=== PATIENT | male | born 1935 | race Caucasian/White ===

== ENCOUNTER 2017-06-24 13:52 | Emergency (ER) | payer MEDICARE ==
[~2017-06-24 13:52] MED LIST: ASPI1TAB69 PO; CENTTAB PO; CYAN100017 PO; D200CAP2; DONE5TAB7 PO; ESSE250T; FISH120014; GLIP5TAB8 PO; MEMA1TAB2 PO; METF1000 PO; SILD20TA11 PO; SIMV20TA PO; VALS1TAB64 PO
[2017-06-24 14:06] VITALS: BP 149/70; PULSE 88; RESP 18; TEMP 98.9; O2SAT 99
[2017-06-24 15:04] LABS: AUTOMATED NEUTROPHIL # 7.9 TH/MM3 (1.8-7.7); BASOPHIL % 0.4 % (0.0-2.0); EOSINOPHIL % 0.2 % (0.0-4.0); HEMATOCRIT 42.4 % (39.0-51.0); HEMOGLOBIN 14.2 GM/DL (13.0-17.0); LYMPH % 7.1 % (9.0-44.0); LYMPHOCYTE # 0.7 TH/MM3 (1.0-4.8); MEAN CELL VOLUME 92.5 FL (80.0-100.0); MEAN CORPUSCULAR HGB CONC 33.5 % (32.0-36.0); MEAN PLATELET VOLUME 9.6 FL (7.0-11.0); MONOCYTE # 0.7 TH/MM3 (0-0.9); NEUT % 84.3 % (16.0-70.0); PLATELET COUNT 204 TH/MM3 (150-450); RED BLOOD COUNT 4.58 MIL/MM3 (4.50-5.90); WHITE BLOOD COUNT 9.4 TH/MM3 (4.0-11.0)
[2017-06-24 15:11] LABS: ALBUMIN 3.4 GM/DL (3.4-5.0); ALT (GPT) 21 U/L (12-78); AST (GOT) 23 U/L (15-37); BICARBONATE 21.2 MEQ/L (21.0-32.0); BLOOD UREA NITROGEN 19 MG/DL (7-18); CALCIUM 8.9 MG/DL (8.5-10.1); CHLORIDE 105 MEQ/L (98-107); CREATININE 1.18 MG/DL (0.60-1.30); GLOMERULAR FILTRATION RATE 59 ML/MIN (>89); GLUCOSE,RANDOM 196 MG/DL (74-106); SODIUM (NA) 137 MEQ/L (136-145)
[2017-06-24 15:13] LABS: ALKALINE PHOSPHATASE 57 U/L (45-117); TOTAL BILIRUBIN ADULT 0.4 MG/DL (0.2-1.0); TOTAL PROTEIN 6.6 GM/DL (6.4-8.2)
--- NOTE | 2017-06-24 15:13 | RADRPT ---
EXAM DATE/TIME: 06/24/2017 15:04 [place] COMPARISON: No previous studies available for comparison. INDICATIONS : Syncope MEDICAL HISTORY : None. SURGICAL HISTORY : None. ENCOUNTER: Initial ACUITY: 1 day PAIN SCORE: 0/10 LOCATION: chest FINDINGS: A single view of the chest demonstrates the lungs to be symmetrically aerated without evidence of mas s, infiltrate or effusion. The cardiomediastinal contours are unremarkable. Osseous structures are intact. CONCLUSION: Normal examination. Sandeep Weller MD on June 24, 2017 at 15:11 Board Certified Radiologist. This report was verified electronically.
[2017-06-24] MEDS ORDERED: SODIUM CHLORID 0.9% 500 ML INJ 500 ML IV ONE (15:15)
--- NOTE | 2017-06-24 15:24 | PD ---
HPI Chief Complaint: Syncope/Near-Syncope Time Seen by Provider: 14:40 Travel History International Travel<30 days: No Contact w/Intl Traveler<30days: No Traveled to known affect area: No History of Present Illness HPI This is an 82-year-old male with a history of diabetes mellitus, dementia, presents here after syncopal episode while at store with his . According to the patient and his son who is at the bedside, he apparently was walking out the door when he became lightheaded and passed out. Paramedics arrived on scene , they found his blood pressure to be 100 systolic. He was given a liter IV fluid and he is blood pressure went up into the 140 systolic. The patient has no complaints at the time of my examination. Patient states she feels fine. His son is at the bedside states that his dad does have dementia and diabetes and has had hypoglycemic episodes in the past. There are no other complaints at the time of my examination. PFSH Past Medical History Arthritis: No Asthma: No Autoimmune Disease: No Heart Rhythm Problems: No Cancer: No Cardiovascular Problems: Yes High Cholesterol: Yes (TAKES MED FOR) Chest Pain: No Congestive Heart Failure: No COPD: No Cerebrovascular Accident: No Diabetes: Yes Patient Takes Glucophage: No Endocrine: Yes (ORAL ANTIGLYCEMICS) GERD: No Genitourinary: No Hiatal Hernia: No Hypertension: Yes (TAKES MEDS FOR) Immune Disorder: No Kidney Stones: No Musculoskeletal: No Neurologic: Yes (SEVERE VERTIGO --ADMITTED WITH TODAY) Psychiatric: No Reproductive: No Respiratory: No Migraines: No Renal Failure: No Seizures: No Sickle Cell Disease: No Sleep Apnea: No Thyroid Disease: No Ulcer: No ?: Not Past Surgical History Abdominal Surgery: Yes (ABDOMINAL ADHESIONS) AICD: No Arteriovenous Shunt: No Cardiac Surgery: No Ear Surgery: No Endocrine Surgery: No Eye Surgery: No Genitourinary Surgery: No Gynecologic Surgery: No Insulin Pump: No Joint Replacement: No Oral Surgery: No Pacemaker: No Thoracic Surgery: No Tonsillectomy: Yes Other Surgery: Yes Social History Alcohol Use: Yes (WEEKLY) Tobacco Use: No Substance Use: No Allergies-Medications (Allergen,Severity, Reaction): Coded Allergies: No Known Allergies (Unverified Adverse Reaction, Unknown, 06/24/17) Reported Meds & Prescriptions Reported Meds & Active Scripts Active Glipizide 5 Mg Tab 5 Mg PO DAILY Take 30 minutes before a meal Valsartan 80 Mg Tab 80 Mg PO DAILY Metformin (Metformin HCl) 1,000 Mg Tab 1,000 Mg PO BIDAC With meals Simvastatin 20 Mg Tab 20 Mg PO DAILY Sildenafil 20 Mg Tab 5 Tab PO ONCE Reported Magnesium 250 Mg Tab Fish Oil ([place]-3 Fatty Acids) 1,200 Mg Cap Centrum Silver (Multiple Vitamins W/ Minerals) 1 Tab 1 Tab PO DAILY D3 (Cholecalciferol) 2,000 Unit Cap B-12 (Cyanocobalamin) 1,000 Mcg Cap 1,000 Mcg PO DAILY Aspirin 81 Mg Tabdr 81 Mg PO DAILY Memantine 10 Mg Tab 10 Mg PO BID Donepezil 5 Mg Tab 5 Mg PO HS Review of Systems Except as stated in HPI: all other systems reviewed are Neg General / Constitutional: No: Fever, Chills Eyes: No: Blurred Vision, Photophobia HENT: No: Headaches, Lightheadedness, Neck Pain Cardiovascular: Positive: Syncope, No: Chest Pain or Discomfort, Palpitations Respiratory: No: Cough, Shortness of Breath Gastrointestinal: No: Nausea, Vomiting, Abdominal Pain Genitourinary: No: Decreased Urinary Output, Incontinence Musculoskeletal: No: Weakness, Pain Neurologic: Positive: Syncope, No: Weakness, Dizziness, Headache, Change in Mentation, Incontinence, Sensory Disturbance Physical Exam Narrative GENERAL: Well-developed well-nourished male in no acute respiratory distress. SKIN: Focused skin assessment warm/dry. HEAD: Atraumatic. Normocephalic. EYES: Pupils equal and round. No scleral icterus. No injection or drainage. ENT: No nasal bleeding or discharge. Mucous membranes pink and moist. NECK: Trachea midline. No JVD. CARDIOVASCULAR: Regular rate and rhythm. No murmur appreciated. RESPIRATORY: No accessory muscle use. Clear to auscultation. Breath sounds equal bilaterally. GASTROINTESTINAL: Abdomen soft, non-tender, nondistended. Hepatic and splenic margins not palpable. MUSCULOSKELETAL: No obvious deformities. No clubbing. No cyanosis. No edema. NEUROLOGICAL: Awake and mildly confused consistent with his dementia history. No obvious cranial nerve deficits. Motor grossly within normal limits. Normal speech. Data Data Last Documented VS Vital Signs Date Time Temp Pulse Resp B/P (MAP) Pulse Ox O2 Delivery O2 Flow Rate FiO2 06/24/17 14:06 98.9 88 18 149/70 (96) 99 Orders Orders Electrocardiogram (06/24/17 14:27) Complete Blood Count With Diff (06/24/17 14:27) Comprehensive Metabolic Panel (06/24/17 14:27) Iv Access Insert/Monitor (06/24/17 14:27) Chest, Single Ap (06/24/17 15:00) Sodium Chlorid 0.9% 500 Ml Inj (Ns 500 M (06/24/17 15:15) Labs Laboratory Tests Test 06/24/17 14:35 White Blood Count 9.4 TH/MM3 Red Blood Count 4.58 MIL/MM3 Hemoglobin 14.2 GM/DL Hematocrit 42.4 % Mean Corpuscular Volume 92.5 FL Mean Corpuscular Hemoglobin 31.0 PG Mean Corpuscular Hemoglobin Concent 33.5 % Red Cell Distribution Width 13.0 % Platelet Count 204 TH/MM3 Mean Platelet Volume 9.6 FL Neutrophils (%) (Auto) 84.3 % Lymphocytes (%) (Auto) 7.1 % Monocytes (%) (Auto) 8.0 % Eosinophils (%) (Auto) 0.2 % Basophils (%) (Auto) 0.4 % Neutrophils # (Auto) 7.9 TH/MM3 Lymphocytes # (Auto) 0.7 TH/MM3 Monocytes # (Auto) 0.7 TH/MM3 Eosinophils # (Auto) 0.0 TH/MM3 Basophils # (Auto) 0.0 TH/MM3 CBC Comment DIFF FINAL Differential Comment Blood Urea Nitrogen 19 MG/DL Creatinine 1.18 MG/DL Random Glucose 196 MG/DL Total Protein 6.6 GM/DL Albumin 3.4 GM/DL Calcium Level 8.9 MG/DL Alkaline Phosphatase 57 U/L Aspartate Amino Transf (AST/SGOT) 23 U/L Alanine Aminotransferase (ALT/SGPT) 21 U/L Total Bilirubin 0.4 MG/DL Sodium Level 137 MEQ/L Potassium Level 4.5 MEQ/L Chloride Level 105 MEQ/L Carbon Dioxide Level 21.2 MEQ/L Anion Gap 11 MEQ/L Estimat Glomerular Filtration Rate 59 ML/MIN [facility] Medical Decision Making Medical Screen Exam Complete: Yes Emergency Medical Condition: Yes Differential Diagnosis Vasovagal syncope versus dehydration versus atypical seizure Narrative Course 82-year-old male with a history of dementia, diabetes mellitus, presents after having a syncopal episode. The patient was noted to have a systolic blood pressure of 100 on scene when paramedics arrived. He was given 1 L of IV fluid. On my examination, patient is awake alert and appropriate. He does have mild dementia which is baseline per his son. EKG showed no evidence of acute ST elevation or depression. There were no blocks noted. Electrolytes show an elevated BUN. His CBC is within normal limits. He has been given another 500 cc of saline. He will be discharged told to increase his fluid intake. He will be recommended that he follow-up with his primary care physician. Diagnosis Primary Impression: Syncope Additional Impressions: Mild dehydration Hyperglycemia with history of diabetes mellitus Additional Instructions: Increase fluid intake over the next 2-3 days. Follow-up with your primary care physician. Disposition: 01 DISCHARGE HOME Condition: Stable Sarath Neri MD Jun 24, 2017 15:24
--- NOTE | 2017-06-25 13:11 | EKG ---
Date Performed: 06/24/2017 Time Performed: 14:32:45 PTAGE: 82 years EKG: Sinus rhythm POSSIBLE RIGHT VENTRICULAR CONDUCTION DELAY BORDERLINE ECG NO PREVIOUS TRACING DOCTOR: Kapil Lloyd Interpretating Date/Time 06/25/2017 13:10:20
== END 2017-06-24 17:39 | disposition home or self-care (01) ==
LOC: NEPE 13:52
DX: R55 Syncope and collapse (principal); E86.0 Dehydration; E11.65 Type 2 diabetes mellitus with hyperglycemia; F03.90 Unspecified dementia, unspecified severity, without behavioral disturbance, psychotic disturbance, mood disturbance, and anxiety; E78.00 Pure hypercholesterolemia, unspecified; I10 Essential (primary) hypertension; Z79.82 Long term (current) use of aspirin; Z79.899 Other long term (current) drug therapy
CPT/HCPCS: 71045; 80053; 85025; 93005; 96360; 99285; J7040